=== PATIENT | female | born 1960 | race African-American/Black ===

== ENCOUNTER 2017-07-30 11:15 | Emergency (ER) | payer MEDICAID ==
[~2017-07-30] VITALS: Ht 162.6 cm; Wt 123.6 kg
[2017-07-30 12:08] VITALS: BP 162/86
== END 2017-07-30 12:48 | disposition home or self-care (01) ==
LOC: ER 11:15
DX: S46.912A Strain of unspecified muscle, fascia and tendon at shoulder and upper arm level, left arm, initial encounter (principal); Z88.0 Allergy status to penicillin; X58.XXXA Exposure to other specified factors, initial encounter; Y93.89 Activity, other specified; Y99.8 Other external cause status; Y92.89 Other specified places as the place of occurrence of the external cause
CPT/HCPCS: 93005

== ENCOUNTER 2018-03-07 08:37 | Emergency (ER) | payer MEDICAID ==
[~2018-03-07] VITALS: Ht 162.6 cm; Wt 136.1 kg
[2018-03-07 09:51] VITALS: BP 159/77
== END 2018-03-07 10:26 | disposition home or self-care (01) ==
LOC: ER 08:37
DX: N39.0 Urinary tract infection, site not specified (principal); B37.9 Candidiasis, unspecified; Z88.0 Allergy status to penicillin

== ENCOUNTER 2022-01-26 14:52 | Emergency (ER) | payer MEDICAID ==
[~2022-01-26] VITALS: Ht 165.1 cm; Wt 132.9 kg
[2022-01-26 14:59] VITALS: BP 145/94
== END 2022-01-26 16:35 | disposition home or self-care (01) ==
LOC: ER 14:52
DX: M79.604 Pain in right leg (principal); J45.909 Unspecified asthma, uncomplicated; Z88.0 Allergy status to penicillin
CPT/HCPCS: 93971

== ENCOUNTER 2024-03-01 09:06 | Emergency (ER) | payer MEDICAID ==
[~2024-03-01] VITALS: Ht 162.6 cm; Wt 133.3 kg
[2024-03-01] MEDS ORDERED: BACL10TA PO (10:25)
[2024-03-01] MEDS ORDERED: IBUP-1456 PO (10:25)
[2024-03-01 10:46] VITALS: BP 149/71; PULSE 64; RESP 18; TEMP 98.7; O2SAT 99
== END 2024-03-01 10:49 | disposition home or self-care (01) ==
LOC: ER 09:06
DX: S46.812A Strain of other muscles, fascia and tendons at shoulder and upper arm level, left arm, initial encounter (principal); J45.909 Unspecified asthma, uncomplicated; Z88.0 Allergy status to penicillin; Z79.899 Other long term (current) drug therapy; X50.0XXA Overexertion from strenuous movement or load, initial encounter; Y93.89 Activity, other specified; Y92.89 Other specified places as the place of occurrence of the external cause; Y99.8 Other external cause status